=== PATIENT | female | born 1950 | race Caucasian/White ===

== ENCOUNTER 2023-04-06 10:02 | Emergency (ER) | payer OTHER, MEDICAID ==
[~2023-04-06] VITALS: Ht 157.4 cm; Wt 56.7 kg
[~2023-04-06 10:02] MED LIST: CALCIUM + VITA1 EAC2 PO; HYDROCODONE BIT1 T11 PO; PEN-VK500 MG PO; VICODIN ES 7501 TAB PO
[2023-04-06] MEDS ORDERED: HYDROCODONE-AC1 EAC1 PO (11:20)
== END 2023-04-06 11:32 | disposition home or self-care (01) ==
LOC: ED 10:02
DX: B02.9 Zoster without complications (principal); Z98.890 Other specified postprocedural states